=== PATIENT | female | born 1975 | race Caucasian/White ===

== ENCOUNTER 2017-09-02 03:54 | Inpatient (IN) ==
--- NOTE | 2017-09-02 04:06 | Emergency Department Note ---
Disposition Clinical Impression: Pancreatitis Disposition: Admitted As Inpatient Abdominal Pain HPI - General Chief Complaint: ED Abdominal Pain Stated Complaint: pain in upper back/vomitting Time Seen by Provider: 09/02/17 03:55 Source: patient Mode of arrival: ambulatory Limitations: no limitations Nursing Notes Reviewed: Yes Vital Signs Reviewed: Yes - History of Present Illness HPI Narrative: PT complains of abdominal pain fo the past week. She has GERD but now she can sleep and is having vomiting as well. No fever chills or chest pain. No diarha or constipation. Pt Subjective Complaint: abdominal pain Onset (ago): week(s) (1) Consistency: constant Location: epigastric Pain Scale: 8 Quality: cramping Radiation: epigastric Migration to: no migration Improves with: nothing Worsens with: nothing Associated symptoms: Reports: nausea, vomiting. Denies: diarrhea, fever, chills , constipation, dysuria, hematochezia, melena - Related Data Home Medications Medication Instructions Recorded Confirmed No Known Home Drugs 09/02/17 09/02/17 Allergies Allergy/AdvReac Type Severity Reaction Status Date / Time Sulfa (Sulfonamide Allergy Swelling Verified 09/02/17 04:01 Antibiotics) of Lip/Tongue/Throat All systems ED: reviewed and negative except as stated. Review of Systems: As Per HPI Constitutional: Denies: fever, chills, weakness, weight change Eyes: Denies: eye pain, eye discharge, vision change ENT ED: Denies: ear pain, throat pain, dental pain, hearing loss, epistaxis, congestion, dysphagia Cardiovascular: Denies: chest pain, palpitations, dyspnea on exertion, edema, syncope Respiratory: Denies: cough, dyspnea, wheezes, hemoptysis, stridor Gastrointestinal: Reports: abdominal pain, nausea, vomiting. Denies: diarrhea, constipation, hematemesis, melena, hematochezia Genitourinary: Reports: as per HPI Musculoskeletal: Denies: back pain, neck pain, arthralgia, myalgia Integumentary: Denies: rash, abrasion, lesions Neurological: Denies: headache, weakness, numbness, paresthesias, confusion, abnormal gait, vertigo Psychiatric: Denies: anxiety, depression, suicidal thoughts, homicidal thoughts , auditory hallucinations, visual hallucinations Endocrine: Denies: fatigue Hematological/Lymphatic: Denies: easy bleeding, easy bruising Allergic/Immunologic: Denies: facial swelling, urticaria Abdominal Pain PMH - Past Medical History Medical history: Reports: GERD Female Surgical History: Reports: no surgical history Psychiatric history: Reports: no psych history - Social History Smoking status: Never smoker Alcohol use: Reports: none Drug use: Reports: none Physical Exam - General Limitations: no limitations General appearance: alert, in no apparent distress - Head Head exam: atraumatic, normocephalic, normal inspection - Eye Eye exam: Present: normal appearance, PERRL, EOMI - ENT ENT exam: normal exam - Neck Neck exam: Present: normal inspection, full ROM, trachea midline - Chest Chest inspection: Present: normal inspection, symmetric chest wall rise - Respiratory Respiratory exam: Present: normal lung sounds bilaterally - Cardiovascular Cardiovascular exam: Present: regular rate, normal rhythm, normal heart sounds - Abdominal Exam Abdominal exam: Present: soft, tenderness, normal bowel sounds. Absent: guarding, rebound Abdominal tenderness: Present: epigastrium - Extremities Exam Extremities exam: Present: normal inspection - Back Exam Back exam: Present: normal inspection - Neurological Exam Neurological exam: Present: alert, oriented X3 - Psychiatric Psychiatric exam: Present: normal affect, normal mood - Skin Skin exam: Present: warm, dry, intact Course Vital Signs Temperature 97 F L 09/02/17 03:58 Pulse Rate 105 09/02/17 03:58 Respiratory Rate 18 09/02/17 03:58 Blood Pressure 143/94 09/02/17 03:58 O2 Sat by Pulse Oximetry 93 09/02/17 03:58 Temperature 97.5 F L 09/02/17 05:40 Pulse Rate 82 09/02/17 05:40 Respiratory Rate 18 09/02/17 05:40 Blood Pressure 152/85 09/02/17 05:40 O2 Sat by Pulse Oximetry 94 09/02/17 05:40 Oxygen Delivery Oxygen Delivery Room Air Abdominal Pain - MDM Narrative Medical decision making narrative: I discussed the case with Dr. Oleary who accepted the admission. Your blood pressure was elevated today so upon discharge please follow up with your doctor - Differential Diagnosis Differential Diagnosis: Likely: abdominal pain non-specific, acute appendicitis , diverticulitis, pancreatitis - Lab Data Lab results reviewed: Yes I reviewed the patient's lab results. Result diagrams: 09/02/17 04:20 09/02/17 04:20 Lab Results 11/11/1809/02/17 09/02/17 Range/Units 04:20 04:20 04:20 WBC 12.5 H (4.3-11.1) K/mcL RBC 5.76 H (3.82-4.97) M/mcL Hgb 15.5 H (11.5-15.4) g/dL Hct 47.0 H (35.3-44.9) % MCV 81.6 L (83.0-100.0) fL MCH 26.9 L (28.0-33.3) pg MCHC 33.0 (31.6-35.5) g/dL RDW 16.4 H (11.5-14.5) % Plt Count 294 (140-400) K/mcL MPV 9.8 (9.4-12.4) fL Immature Gran % 1.0 (0-4) % Seg Neutrophils % 86.4 % Lymphocytes % 10.1 % Monocytes % 2.2 % Eosinophils % 0.1 % Basophils % 0.2 % Neutrophils # 10.8 H (1.6-8.9) K/mcL Lymphocytes # 1.3 (0.6-4.6) K/mcL Monocytes # 0.3 (0.0-1.3) K/mcL Eosinophils # 0.0 (0.0-0.6) K/mcL Basophils # 0.0 (0.0-0.2) K/mcL Sodium 138 (136-145) mEq/L Potassium 4.0 (3.5-4.5) mEq/L Chloride 100 (98-109) mEq/L Carbon Dioxide 23 (19-29) mEq/L BUN 6 L (7-20) mg/dL Creatinine 0.63 (0.57-1.11) mg/dL Est GFR ( Amer) > 60 (> 60) Est GFR (Non-Af Amer) > 60 (> 60) BUN/Creatinine Ratio 10 (6-26) Glucose 233 H (70-99) mg/dL Calculated Osmolality 291 (280-300) Lactic Acid (0.5-2.2) mmol/L Calcium 10.2 (8.6-10.8) mg/dL Total Bilirubin 4.5 H (0.2-1.2) mg/dL AST 369 H (5-34) Units/L ALT 881 H (0-55) Units/L Alkaline Phosphatase 410 H (38-126) Units/L Serum Total Protein 8.3 (6.0-8.3) g/dL Albumin 3.4 L (3.5-5.0) g/dL Globulin 4.9 H (2.4-3.5) g/dL Albumin/Globulin Ratio 0.7 L (1.1-2.2) Amylase 988 H (25-125) Units/L Lipase > 1200 H (8-78) Units/L Urine Color Dark Yellow (Yellow) Urine Clarity Slightly Cloudy A (Clear) Urine pH 5.5 (5.0-8.0) pH Units Ur Specific [place] >= 1.030 H (1.010-1.025) Urine Protein 100 H (Neg-Trace) mg/dL Urine Glucose (UA) 100 H (Normal) mg/dL Urine Ketones 40 H (Negative) mg/dL Urine Blood Small H (Negative) Urine Nitrite Negative (Negative) Urine Bilirubin Large H (Negative) Urine Urobilinogen 2.0 H (Normal) mg/dL Ur Leukocyte Esterase Negative (Negative) Urine Microscopic RBC 5-15 H (0-3) per hpf Ur Squamous Epith Cells Few (None-Few) per lpf Amorphous Sediment Few (Few) Urine Mucus Few (Few) Ur Culture Indicated? NO (NO) Urine Test (Negative) 09/02/17 09/02/17 Range/Units 04:20 04:20 WBC (4.3-11.1) K/mcL RBC (3.82-4.97) M/mcL Hgb (11.5-15.4) g/dL Hct (35.3-44.9) % MCV (83.0-100.0) fL MCH (28.0-33.3) pg MCHC (31.6-35.5) g/dL RDW (11.5-14.5) % Plt Count (140-400) K/mcL MPV (9.4-12.4) fL Immature Gran % (0-4) % Seg Neutrophils % % Lymphocytes % % Monocytes % % Eosinophils % % Basophils % % Neutrophils # (1.6-8.9) K/mcL Lymphocytes # (0.6-4.6) K/mcL Monocytes # (0.0-1.3) K/mcL Eosinophils # (0.0-0.6) K/mcL Basophils # (0.0-0.2) K/mcL Sodium (136-145) mEq/L Potassium (3.5-4.5) mEq/L Chloride (98-109) mEq/L Carbon Dioxide (19-29) mEq/L BUN (7-20) mg/dL Creatinine (0.57-1.11) mg/dL Est GFR ( Amer) (> 60) Est GFR (Non-Af Amer) (> 60) BUN/Creatinine Ratio (6-26) Glucose (70-99) mg/dL Calculated Osmolality (280-300) Lactic Acid 1.3 (0.5-2.2) mmol/L Calcium (8.6-10.8) mg/dL Total Bilirubin (0.2-1.2) mg/dL AST (5-34) Units/L ALT (0-55) Units/L Alkaline Phosphatase (38-126) Units/L Serum Total Protein (6.0-8.3) g/dL Albumin (3.5-5.0) g/dL Globulin (2.4-3.5) g/dL Albumin/Globulin Ratio (1.1-2.2) Amylase (25-125) Units/L Lipase (8-78) Units/L Urine Color (Yellow) Urine Clarity (Clear) Urine pH (5.0-8.0) pH Units Ur Specific [place] (1.010-1.025) Urine Protein (Neg-Trace) mg/dL Urine Glucose (UA) (Normal) mg/dL Urine Ketones (Negative) mg/dL Urine Blood (Negative) Urine Nitrite (Negative) Urine Bilirubin (Negative) Urine Urobilinogen (Normal) mg/dL Ur Leukocyte Esterase (Negative) Urine Microscopic RBC (0-3) per hpf Ur Squamous Epith Cells (None-Few) per lpf Amorphous Sediment (Few) Urine Mucus (Few) Ur Culture Indicated? (NO) Urine Test Negative (Negative) - Radiology Data Radiology results reviewed: Yes I reviewed the patient's radiology results.
[2017-09-02] MEDS ORDERED: Ondansetron 4 MG/2 ML VIAL IVP ONE (04:10)
[2017-09-02] MEDS ORDERED: 0.9 % Sodium Chloride 1,000 ML IVC ONE (04:10)
[2017-09-02 04:29] LABS: Basophils % 0.2 %; Eosinophils % 0.1 %; Hemoglobin 15.5 g/dL (11.5-15.4); Lymphocytes # 1.3 K/mcL (0.6-4.6); Lymphocytes % 10.1 %; Mean Corpuscular Hemoglobin 26.9 pg (28.0-33.3); Mean Corpuscular Volume 81.6 fL (83.0-100.0); Mean Platelet Volume 9.8 fL (9.4-12.4); Monocytes # 0.3 K/mcL (0.0-1.3); Monocytes % 2.2 %; Neutrophils # 10.8 K/mcL (1.6-8.9); Platelet Count 294 K/mcL (140-400); Red Blood Count 5.76 M/mcL (3.82-4.97); Red Cell Distribution Width 16.4 % (11.5-14.5); Segmented Neutrophils % 86.4 %
[2017-09-02 04:32] LABS: Bilirubin,Urine Large (Negative); Blood,Urine Small (Negative); Clarity,Urine Slightly Cloudy (Clear); Glucose,Urine (UA) 100 mg/dL (Normal); Ketones,Urine 40 mg/dL (Negative); Leukocyte Esterase,Urine Negative (Negative); Nitrite,Urine Negative (Negative); PH,Urine 5.5 pH Units (5.0-8.0); Protein,Urine 100 mg/dL (Neg-Trace); Specific Gravity,Urine >= 1.030 (1.010-1.025)
[2017-09-02 04:33] LABS: Color,Urine Dark Yellow (Yellow)
[2017-09-02 04:34] LABS: Amorphous Sediment,Urine Few (Few); Mucus,Urine Few (Few); Squamous Epithelial Cell,Urine Few per lpf (None-Few)
[2017-09-02] MEDS ORDERED: *HR* HYDROmorphone (PF) 1 MG/ML SYRINGE IVP ONE (04:42)
[2017-09-02 04:46] LABS: Alanine Aminotransferase 881 Units/L (0-55); Albumin 3.4 g/dL (3.5-5.0); Albumin/Globulin Ratio 0.7 (1.1-2.2); Alkaline Phosphatase 410 Units/L (38-126); Amylase 988 Units/L (25-125); Aspartate Amino Transferase 369 Units/L (5-34); BUN/Creatinine Ratio 10 (6-26); Bilirubin,Total 4.5 mg/dL (0.2-1.2); Blood Urea Nitrogen 6 mg/dL (7-20); Calcium 10.2 mg/dL (8.6-10.8); Carbon Dioxide 23 mEq/L (19-29); Chloride 100 mEq/L (98-109); Globulin 4.9 g/dL (2.4-3.5); Glucose 233 mg/dL (70-99); Lipase > 1200 Units/L (8-78); Osmolality,Calculated 291 (280-300); Sodium 138 mEq/L (136-145); Total Protein 8.3 g/dL (6.0-8.3); eGFR For African Americans > 60 (> 60); eGFR For Non-African Americans > 60 (> 60)
[2017-09-02] MEDS ORDERED: Ondansetron 4 MG/2 ML VIAL IVP PRN (05:36)
[2017-09-02] MEDS ORDERED: Naloxone 0.4 MG/ML INJ IVP PRN (05:36)
[2017-09-02] MEDS ORDERED: Acetaminophen 325 MG TABLET PO PRN (05:36)
[2017-09-02] MEDS: 0.9 % Sodium Chloride 1,000 ML IVC SCH ×3 (06:05→20:16)
[2017-09-02] MEDS: *HR* HYDROmorphone (PF) 1 MG/ML SYRINGE IVP PRN ×4 (06:29→20:06)
--- NOTE | 2017-09-02 13:24 | Internal Med History&Physical ---
Date of Encounter: 09/02/17 Time of Encounter: 13:22 Assessment and Plan (1) Morbid obesity due to excess calories Current visit: Yes Status: Acute Patient is overweight and his risk factor for gallbladder disease. But right now there was no evidence of stone. But direct bilirubin is increased (2) Pancreatitis Current visit: Yes Status: Acute Patient is being treated for acute pancreatitis although the etiology right now seems to be idiopathic. Patient is not a drinker and denies using any alcohol and also no stones were noted no common duct obstruction Qualifiers: Chronicity: acute Pancreatitis type: idiopathic Acute pancreatitis complication: no infection or necrosis Qualified Code(s): K85.00 - Idiopathic acute pancreatitis without necrosis or infection Internal Medicine - H&P: HPI Chief complaint: Patient presented for emergency room with abdominal pain. Workup seems to Admitted From: Emergency Dept Plans for Post Hospital Care: Home History of present illness: Ms. Baig is a 42 year old female Patient is currently nothing by mouth getting pain meds meds for nausea IV fluids. And will follow. There was a questionable mass on the CT by the adrenal gland. All this will be followed up Past Med Surg Social Fam HX - Past Medical History Medical history: GERD, kidney stones Psychiatric history: no psych history - Social History Smoking Status: Never smoker Smokeless Tobacco Status: No Alcohol use: none Drug use: none - Family History Father Living Status: Still Living Hx Family Endocrine Disorder: Yes Mother Living Status: Still Living Hx Family Cardiac Disorders: Yes Internal Medicine - H&P: Meds No Known Home Drugs 09/02/17 [History] 3 Allergy/AdvReac Type Severity Reaction Status Date / Time Sulfa (Sulfonamide Allergy Swelling Verified 09/02/17 04:01 Antibiotics) of Lip/Tongue/Throat All Systems PM: A 10-system review of systems was performed and is negative for pertinent findings except as documented above in the HPI. - Constitutional Constitutional: as per HPI - EENT Eyes: as per HPI Ears: as per HPI Nose, mouth and throat: as per HPI - Breasts Breasts: as per HPI - Cardiovascular Cardiovascular ROS IM: as per HPI - Respiratory Respiratory: as per HPI - Gastrointestinal Gastrointestinal: dyspepsia, heartburn - Genitourinary Genitourinary: as per HPI - Musculoskeletal Musculoskeletal ROS IM: as per HPI - Integumentary Integumentary IM: as per HPI - Neurological Neurological ROS: as per HPI - Psychiatric Psychiatric: as per HPI - Endocrine Endocrine IM: as per HPI - Hematologic/Lymphatic Hematologic/Lymphatic: as per HPI - Allergic/Immunologic Allergic/Immunologic: as per HPI - Constitutional Vitals: Temp Pulse Resp BP Pulse Ox 97.8 F 82 18 132/80 94 09/02/17 12:06 09/02/17 12:06 09/02/17 12:06 09/02/17 12:06 09/02/17 12:06 - Head Head exam: Present: atraumatic, normal inspection, normocephalic - Neck Neck exam general surgery: Present: supple, trachea midline. Absent: lymphadenopathy - Respiratory Respiratory exam: Present: CTAB. Absent: accessory muscle use, rales, rhonchi, wheezes - Cardiovascular Cardiovascular exam: Present: RRR, +S1, +S2. Absent: diastolic murmur, gallop, rubs, systolic murmur - GI/Abdominal GI/Abdominal exam: Present: normal bowel sounds, soft, no peritoneal signs. Absent: distended, tenderness Additional comments: Abdomen was appreciably more tender to palpation in the upper portion earlier in the admission but now I palpated the abdomen without and pain - Extremities Exam Extremities exam: Present: normal inspection, warm, radial pulses palpable and symmetrical. Absent: calf tenderness, cyanotic, pedal edema - Neurological Exam Neurological exam: Present: CN II-XII intact, oriented X3, no focal deficits. Absent: pronater drift, facial droop, speech deficit - Psychiatric Psychiatric exam: Present: normal affect - Skin Skin exam: Present: dry, intact Internal Med - H&P Results - Labs CBC & Chem 7: 09/02/17 04:20 09/02/17 04:20 Labs: White count obviously is a little elevated - VTE Reasons for not Prescribing Prophylaxis: Treatment not Indicated - Low risk for VTE Documentation of Mechanical Device: Graduated compression elastic hosiery
[2017-09-03] MEDS: *HR* HYDROmorphone (PF) 1 MG/ML SYRINGE IVP PRN ×6 (00:20→23:42)
[2017-09-03] MEDS: Ondansetron 4 MG/2 ML VIAL IVP PRN ×6 (00:39→23:43)
[2017-09-03] MEDS: 0.9 % Sodium Chloride 1,000 ML IVC SCH ×4 (03:27→23:44)
--- NOTE | 2017-09-03 13:46 | Internal Med Progress Note ---
Date of Encounter: 09/03/17 Time of Encounter: 13:43 - Assessment and plan (1) Morbid obesity due to excess calories Current Visit: Yes Status: Acute Assessment and plan: Noted (2) Pancreatitis Current Visit: Yes Status: Acute Assessment and plan: Patient does have what I think is gallstone pancreatitis due to gallstones noted on ultrasound Qualifiers: Chronicity: acute Pancreatitis type: idiopathic Acute pancreatitis complication: no infection or necrosis Qualified Code(s): K85.00 - Idiopathic acute pancreatitis without necrosis or infection - Time Spent With Patient less than 15 minutes - Subjective Interval history: Patient is resting quietly states she is pretty comfortable then. But which gets up and moves around she has more abdominal pain. Ultrasound did show stones although no obstruction of the common duct. Lipase amylase pending - Constitutional Vitals: Temp Pulse Resp BP Pulse Ox 98.6 F 111 18 107/63 93 09/03/17 10:43 09/03/17 10:43 09/03/17 10:43 09/03/17 10:43 09/03/17 10:43 - Head Head exam: Present: atraumatic, normal inspection, normocephalic - Neck Neck exam general surgery: Present: supple, trachea midline. Absent: lymphadenopathy - Respiratory Respiratory exam: Present: CTAB. Absent: accessory muscle use, rales, rhonchi, wheezes - Cardiovascular Cardiovascular exam: Present: RRR, +S1, +S2. Absent: diastolic murmur, gallop, rubs, systolic murmur - GI/Abdominal GI/Abdominal exam: Present: normal bowel sounds, soft, no peritoneal signs. Absent: distended, tenderness Internal Medicine: Result - Labs CBC & Chem 7: 09/02/17 04:20 09/02/17 04:20 Labs: Labs stable amylase and liver enzymes with lipase are pending - VTE Reasons for not Prescribing Prophylaxis: Treatment not Indicated - Low risk for VTE Documentation of Mechanical Device: Graduated compression elastic hosiery Consult Discharge Plan - Plan Referrals: NONE,PCP [Primary Care Provider] - Lenora Swartz [Family Provider] -
[2017-09-03 14:13] LABS: Albumin 2.6 g/dL (3.5-5.0); Albumin/Globulin Ratio 0.7 (1.1-2.2); Bilirubin,Direct 0.8 mg/dL (0.0-0.5); Bilirubin,Indirect 0.9 mg/dL (0.0-1.2); Bilirubin,Total 1.7 mg/dL (0.2-1.2); Globulin 3.9 g/dL (2.4-3.5); Total Protein 6.5 g/dL (6.0-8.3)
[2017-09-04] MEDS: *HR* HYDROmorphone (PF) 1 MG/ML SYRINGE IVP PRN ×2 (03:22→09:36)
[2017-09-04] MEDS: Ondansetron 4 MG/2 ML VIAL IVP PRN ×2 (03:22→09:36)
[2017-09-04] MEDS: 0.9 % Sodium Chloride 1,000 ML IVC SCH ×4 (09:35→19:42)
--- NOTE | 2017-09-04 14:30 | Internal Med Progress Note ---
Date of Encounter: 09/04/17 Time of Encounter: 14:28 - Assessment and plan (1) Morbid obesity due to excess calories Current Visit: Yes Status: Acute Assessment and plan: Obviously contributive factor (2) Pancreatitis Current Visit: Yes Status: Acute Assessment and plan: Obviously gallstone pancreatitis Qualifiers: Chronicity: acute Pancreatitis type: biliary Acute pancreatitis complication: no infection or necrosis Qualified Code(s): K85.10 - Biliary acute pancreatitis without necrosis or infection - Time Spent With Patient less than 15 minutes - Subjective Interval history: Patient feels a little better the enzymes are half of what they were at admission. We will start weaning down the pain meds and then I have recommended that the patient follow up with general surgeon to have her gallbladder removed with a problem will return. I think perhaps by this weekend will start something light like oatmeal - Constitutional Vitals: Temp Pulse Resp BP Pulse Ox 98.3 F 106 19 130/77 91 09/04/17 10:50 09/04/17 10:50 09/04/17 10:50 09/04/17 10:50 09/04/17 10:50 - Head Head exam: Present: normal inspection - Neck Neck exam general surgery: Present: supple, trachea midline. Absent: lymphadenopathy - Respiratory Respiratory exam: Present: CTAB. Absent: accessory muscle use, rales, rhonchi, wheezes - Cardiovascular Cardiovascular exam: Present: RRR, +S1, +S2. Absent: diastolic murmur, gallop, rubs, systolic murmur - GI/Abdominal GI/Abdominal exam: Present: normal bowel sounds, soft, no peritoneal signs. Absent: distended, tenderness Internal Medicine: Result - Labs CBC & Chem 7: 09/02/17 04:20 09/02/17 04:20 Labs: Liver Function 09/03/17 Range/Units 13:38 Total Bilirubin 1.7 H D (0.2-1.2) mg/dL Direct Bilirubin 0.8 H (0.0-0.5) mg/dL AST 60 H (5-34) Units/L ALT 464 H (0-55) Units/L Alkaline Phosphatase 295 H (38-126) Units/L Albumin 2.6 L D (3.5-5.0) g/dL Repeat lab for the a.m. that includes amylase lipase LFTs and CBC. Her direct bili is way down from what it was - VTE Reasons for not Prescribing Prophylaxis: Treatment not Indicated - Low risk for VTE Documentation of Mechanical Device: Graduated compression elastic hosiery Consult Discharge Plan - Plan Referrals: NONE,PCP [Primary Care Provider] - Lenora Swatrz [Family Provider] -
[2017-09-04] MEDS ORDERED: *HR* OxyCODONE/APAP 5/325 TABLET PO SCH (16:00)
[2017-09-04] MEDS: *HR* OxyCODONE/APAP 5/325 TABLET PO PRN (23:35)
[2017-09-05] MEDS: *HR* OxyCODONE/APAP 5/325 TABLET PO PRN ×5 (03:41→20:15)
[2017-09-05] MEDS ORDERED: Ondansetron ODT 4 MG TAB.RAPDIS SL PRN (04:18)
[2017-09-05 05:59] LABS: Albumin 2.3 g/dL (3.5-5.0); Albumin/Globulin Ratio 0.5 (1.1-2.2); Bilirubin,Direct 0.2 mg/dL (0.0-0.5); Bilirubin,Indirect 0.6 mg/dL (0.0-1.2); Bilirubin,Total 0.8 mg/dL (0.2-1.2); Globulin 4.2 g/dL (2.4-3.5); Total Protein 6.5 g/dL (6.0-8.3)
[2017-09-05] MEDS: 0.9 % Sodium Chloride 1,000 ML IVC SCH ×4 (08:29→23:37)
--- NOTE | 2017-09-05 14:50 | Internal Med Progress Note ---
Date of Encounter: 09/05/17 Time of Encounter: 14:40 - Assessment and plan (1) Pancreatitis Current Visit: Yes Status: Acute Assessment and plan: Amylase and lipase have totally normalized and liver enzymes are improving. Still hypoalbuminemic. Will advance to clear liquids and then soft diaet, tomorrow, if tolerates without exacerbation. - Subjective Interval history: Doing well, having some epigastric pain but nausea nearly subsided. Tolerating ice chips and popsicles. No emesis. Bowel movements X 2 yesterday, loose. No BMs today. ROS other oneil negative. - Constitutional Vitals: Temp Pulse Resp BP Pulse Ox 97.4 F L 98 18 131/75 95 09/05/17 13:12 09/05/17 13:12 09/05/17 13:12 09/05/17 13:12 09/05/17 13:12 - Head Head exam: Present: atraumatic, normocephalic - Eye Eye exam: Present: PERRL, conjuntiva pink, sclera anicteric Pupils: Present: PERRL - Neck Neck exam general surgery: Present: supple, trachea midline - Respiratory Respiratory exam: Present: CTAB. Absent: accessory muscle use, rales, rhonchi, wheezes - Cardiovascular Cardiovascular exam: Present: RRR. Absent: diastolic murmur, systolic murmur - GI/Abdominal GI/Abdominal exam: Present: normal bowel sounds, soft, tenderness, no peritoneal signs Additional comments: Has epigastric tenderness moderate in degree without guarding or rebound. No HSM appreciated. No other tenderness or CVA tenderness. - Extremities Exam Extremities exam: Present: warm, radial pulses palpable and symmetrical. Absent : calf tenderness, cyanotic, pedal edema - Neurological Exam Neurological exam: Present: CN II-XII intact, oriented X3, no focal deficits Internal Medicine: Result - Labs CBC & Chem 7: 09/02/17 04:20 09/02/17 04:20 Labs: Liver Function 09/05/17 Range/Units 05:20 Total Bilirubin 0.8 D (0.2-1.2) mg/dL Direct Bilirubin 0.2 (0.0-0.5) mg/dL AST 33 (5-34) Units/L ALT 234 H (0-55) Units/L Alkaline Phosphatase 234 H (38-126) Units/L Albumin 2.3 L (3.5-5.0) g/dL - VTE Reasons for not Prescribing Prophylaxis: Treatment not Indicated - Low risk for VTE Documentation of Mechanical Device: Graduated compression elastic hosiery Consult Discharge Plan - Plan Referrals: NONE,PCP [Primary Care Provider] - Lenora Swartz [Family Provider] -
[2017-09-06] MEDS: *HR* OxyCODONE/APAP 5/325 TABLET PO PRN ×3 (00:52→10:44)
[2017-09-06] MEDS: 0.9 % Sodium Chloride 1,000 ML IVC SCH ×2 (05:39→12:33)
[2017-09-06 05:49] LABS: Albumin 2.2 g/dL (3.5-5.0); Albumin/Globulin Ratio 0.5 (1.1-2.2); Bilirubin,Direct 0.2 mg/dL (0.0-0.5); Bilirubin,Indirect 0.5 mg/dL (0.0-1.2); Bilirubin,Total 0.7 mg/dL (0.2-1.2); Globulin 4.1 g/dL (2.4-3.5); Total Protein 6.3 g/dL (6.0-8.3)
--- NOTE | 2017-09-06 15:37 | Internal Med Progress Note ---
Date of Encounter: 09/06/17 Time of Encounter: 13:05 - Assessment and plan (1) Pancreatitis Current Visit: Yes Status: Acute Assessment and plan: Continues to improve, so will advance diet, discontinue IV, follow. Qualifiers: Chronicity: acute Pancreatitis type: biliary Acute pancreatitis complication: no infection or necrosis Qualified Code(s): K85.10 - Biliary acute pancreatitis without necrosis or infection - Subjective Interval history: Doing better, has more energy. No abdominal pain. Had some issues with hallucinations, last night and asks if this could be related to Percocet No other acute issues and feeling generally better. Pain is minimizing, comparitively - Constitutional Vitals: Temp Pulse Resp BP Pulse Ox 97.4 F L 95 18 143/84 95 09/06/17 11:40 09/06/17 11:40 09/06/17 11:40 09/06/17 11:40 09/06/17 11:40 - Head Head exam: Present: atraumatic, normocephalic - Eye Eye exam: Present: PERRL, conjuntiva pink, sclera anicteric Pupils: Present: PERRL - Neck Neck exam general surgery: Present: supple, trachea midline - Respiratory Respiratory exam: Present: CTAB. Absent: accessory muscle use, rales, rhonchi, wheezes - Cardiovascular Cardiovascular exam: Present: RRR. Absent: diastolic murmur, systolic murmur - GI/Abdominal GI/Abdominal exam: Present: normal bowel sounds, soft, no peritoneal signs. Absent: distended, tenderness Additional comments: Tenderness at epigastrium is minimal. She is morbidly obese and therefore difficult to palpate deeply. - Extremities Exam Extremities exam: Present: warm, radial pulses palpable and symmetrical. Absent : calf tenderness, cyanotic, pedal edema - Neurological Exam Neurological exam: Present: CN II-XII intact, oriented X3, no focal deficits. Absent: speech deficit Internal Medicine: Result - Labs CBC & Chem 7: 09/02/17 04:20 09/02/17 04:20 Labs: Liver Function 09/06/17 Range/Units 04:55 Total Bilirubin 0.7 (0.2-1.2) mg/dL Direct Bilirubin 0.2 (0.0-0.5) mg/dL AST 18 (5-34) Units/L ALT 166 H (0-55) Units/L Alkaline Phosphatase 216 H (38-126) Units/L Albumin 2.2 L (3.5-5.0) g/dL - VTE Reasons for not Prescribing Prophylaxis: Treatment not Indicated - Low risk for VTE Documentation of Mechanical Device: Graduated compression elastic hosiery Consult Discharge Plan - Plan Referrals: NONE,PCP [Primary Care Provider] - Lenora Swartz [Family Provider] -
[2017-09-06] MEDS: traMADol 50 MG TABLET PO PRN ×2 (17:29→21:47)
[2017-09-07 06:16] LABS: Basophils % 0.2 %; Eosinophils # 0.1 K/mcL (0.0-0.6); Eosinophils % 0.7 %; Hematocrit 36.8 % (35.3-44.9); Hemoglobin 11.3 g/dL (11.5-15.4); Immature Granulocytes % 0.8 % (0-4); Lymphocytes # 1.6 K/mcL (0.6-4.6); Lymphocytes % 12.7 %; Mean Corpuscular HGB Conc 30.7 g/dL (31.6-35.5); Mean Corpuscular Hemoglobin 26.8 pg (28.0-33.3); Mean Corpuscular Volume 87.4 fL (83.0-100.0); Monocytes # 0.7 K/mcL (0.0-1.3); Monocytes % 5.4 %; Platelet Count 209 K/mcL (140-400); Red Blood Count 4.21 M/mcL (3.82-4.97); Red Cell Distribution Width 16.4 % (11.5-14.5); Segmented Neutrophils % 80.2 %
[2017-09-07 06:25] LABS: Neutrophils # 10.4 K/mcL (1.6-8.9)
[2017-09-07 06:32] LABS: BUN/Creatinine Ratio 8 (6-26); Calcium 9.1 mg/dL (8.6-10.8); Carbon Dioxide 36 mEq/L (19-29); Chloride 96 mEq/L (98-109); Glucose 107 mg/dL (70-99); Osmolality,Calculated 289 (280-300); Potassium 4.1 mEq/L (3.5-4.5); Sodium 141 mEq/L (136-145); eGFR For African Americans > 60 (> 60); eGFR For Non-African Americans > 60 (> 60)
[2017-09-07 06:35] LABS: Blood Urea Nitrogen 4 mg/dL (7-20)
[2017-09-07 12:31] VITALS: BP 148/85
--- NOTE | 2017-09-07 14:50 | Discharge Summary ---
Date of Encounter: 09/07/17 Time of Encounter: 14:48 - Discharge Diagnosis (1) Morbid obesity due to excess calories Priority: Secondary Status: Acute Comments: Contributing factor (2) Pancreatitis Priority: Primary Status: Acute Qualifiers: Chronicity: acute Pancreatitis type: biliary Acute pancreatitis complication: no infection or necrosis Qualified Code(s): K85.10 - Biliary acute pancreatitis without necrosis or infection - Discharge Medications Home Medications: No Known Home Drugs 09/02/17 [History] Allergies/Adverse Reactions: 3 Allergy/AdvReac Type Severity Reaction Status Date / Time Sulfa (Sulfonamide Allergy Swelling Verified 09/02/17 04:01 Antibiotics) of Lip/Tongue/Throat Date of admission: 09/02/17 15:26 Primary care physician: PCP NONE Discharging clinician: Christos Oleary Anticipated date of discharge: 09/07/17 - Patient Status Disposition: Home, Self-Care Condition: Good Functional capacity at discharge: independent ambulation Overall status at discharge: patient is progressing back to baseline - Discharge Instructions Follow Up With: Kingsley Coulter DO [Partnered Physician] - 09/29/17 1:35 pm NONE,PCP [Primary Care Provider] - Lenora Swartz [Family Provider] - - Diet and Activity Activity: increase activity as tolerated Diet: low fat, low cholesterol Interval History: She presented to the emergency room with acute abdominal pain nausea and vomiting was noted to have a significantly elevated amylase. I was admitted to the hospital pancreatitis. Hospital course: Ms. Baig is a 42 year old female Initial CT showed no stones and no obstruction, and Dr. Higgins direct bilirubin was elevated and I did an ultrasound which did show stones so I am pretty comfortable with the fact this was gallstone pancreatitis. - Time Spent with Patient Total time spent providing and/or coordinating discharge services: Less than 30 minutes - Constitutional Vitals: Temp Pulse Resp BP Pulse Ox 98.2 F 94 18 148/85 95 09/07/17 12:00 09/07/17 12:00 09/07/17 12:00 09/07/17 12:00 09/07/17 12:00 - Head Head exam: Present: atraumatic, normal inspection, normocephalic - Neck Neck exam general surgery: Present: supple, trachea midline. Absent: lymphadenopathy - Respiratory Respiratory exam: Present: CTAB. Absent: accessory muscle use, rales, rhonchi, wheezes - Cardiovascular Cardiovascular exam: Present: RRR, +S1, +S2. Absent: diastolic murmur, gallop, rubs, systolic murmur - GI/Abdominal GI/Abdominal exam: Present: normal bowel sounds, soft, no peritoneal signs. Absent: distended, tenderness - VTE Reasons for not Prescribing Prophylaxis: Treatment not Indicated - Low risk for VTE Documentation of Mechanical Device: Graduated compression elastic hosiery
[2017-09-07] MEDS: traMADol 50 MG TABLET PO PRN (15:42)
== END 2017-09-07 16:57 | disposition home or self-care (01) | DRG 439 ==
LOC: INPGRE 03:54 → EMEROOGRE 03:54 → INPGRE 05:39
PROVIDERS: ADMIT Internal Medicine; ATTEND Internal Medicine